=== PATIENT | female | born 1955 | race Caucasian/White ===

== ENCOUNTER → 2018-02-01 09:54 | Outpatient (CLI) | payer OTHER, SELFPAY ==
[2018-02-01 10:27] LABS: Hemoglobin A1C% w Est Avg Glu 6.9 % (4.0-6.0)
== END ==
PROVIDERS: Family Provider Family Medicine; PCP Family Medicine; Visit Provider Family Medicine
DX: E11.9 Type 2 diabetes mellitus without complications (principal)
CPT/HCPCS: 36415; 83036

== ENCOUNTER → 2018-07-16 15:38 | Outpatient (CLI) | payer OTHER, SELFPAY ==
[2018-07-16 16:28] LABS: Hemoglobin A1C% w Est Avg Glu 7.1 % (4.0-6.0)
[2018-07-16 16:34] LABS: HEMOLYSIS < 15 (0-50)
[2018-07-16 16:35] LABS: Alanine Aminotransferase 33 IU/L (9-52); Albumin 4.2 g/dL (3.5-5.0); Albumin Globulin Ratio 1.6 (1.0-2.8); Alkaline Phosphatase 77 U/L (38-126); Aspartate Aminotransferase 18 IU/L (14-36); BUN Creatinine Ratio 26.7 (6-22); Bilirubin Total 0.2 mg/dL (0.2-1.3); Blood Urea Nitrogen 16 mg/dL (7-17); Calcium 9.5 mg/dL (8.4-10.2); Carbon Dioxide 26 mmol/L (22-32); Chloride 101 mmol/L (98-107); Cholesterol 148 mg/dL (140-199); Estimated Glomerular Filt Rate > 60.0 mL/min (>60); Globulin 2.6 g/dL (1.7-4.1); Glucose 128 mg/dL (80-110); HDL Cholesterol 54 mg/dL (40-60); LDL Cholesterol Calculated 71 mg/dL (<100); Sodium 140 mmol/L (137-145); Total Protein 6.8 g/dL (6.3-8.2); Triglycerides 113 mg/dL (35-150)
[2018-07-16 16:55] LABS: Potassium 4.5 mmol/L (3.4-5.1)
== END ==
PROVIDERS: Family Provider Family Medicine; PCP Family Medicine; Visit Provider Family Medicine
DX: E11.9 Type 2 diabetes mellitus without complications (principal); I10 Essential (primary) hypertension
CPT/HCPCS: 36415; 80053; 80061; 83036

== ENCOUNTER → 2018-11-01 09:43 | Outpatient (CLI) | payer OTHER, SELFPAY ==
[2018-11-01 11:05] LABS: Hemoglobin A1C% w Est Avg Glu 6.7 % (4.0-6.0)
== END ==
PROVIDERS: Family Provider Family Medicine; PCP Family Medicine; Visit Provider Family Medicine
DX: E11.9 Type 2 diabetes mellitus without complications (principal)
CPT/HCPCS: 36415; 83036

== ENCOUNTER → 2018-11-13 09:16 | Outpatient (CLI) | payer OTHER, SELFPAY ==
--- NOTE | 2018-11-13 09:18 | DI.MG.S_ITS ---
BILATERAL DIGITAL SCREENING MAMMOGRAM 3D/2D WITH CAD: 11/13/2018 CLINICAL: Routine screening. Family history of breast cancer. Comparison is made to exams dated: 09/05/2016 mammogram, 06/15/2015 mammogram, and 05/19/2014 mammogram - [facility]. There are scattered fibroglandular elements in both breasts. Current study was also evaluated with a Computer Aided Detection (CAD) system. No significant masses, calcifications, or other findings are seen in either breast. There has been no significant interval change. IMPRESSION: NEGATIVE There is no mammographic evidence of malignancy. A 1 year screening mammogram is recommended. This exam was interpreted at Station ID: [id number]. NOTE: For mammograms, a report in lay terms will be sent to the patient. Approximately 15% of breast malignancies will not be visualized mammographically. In the management of a palpable breast mass, a negative mammogram must not discourage biopsy of a clinically suspicious lesion. Electronically Signed By: Eduardo fletcher/rah:11/15/2018 11:13:44 copy to: Lucero Cash letter sent: Normal Exam ACR BI-RADS Category 1: Negative 3341F
== END ==
PROVIDERS: PCP Family Medicine; Visit Provider Family Medicine
DX: Z12.31 Encounter for screening mammogram for malignant neoplasm of breast (principal); Z80.3 Family history of malignant neoplasm of breast
CPT/HCPCS: 77063; 77067

== ENCOUNTER → 2019-02-08 09:29 | Outpatient (CLI) | payer OTHER, SELFPAY ==
[2019-02-08 11:32] LABS: BUN Creatinine Ratio 28.3 (6-22); Blood Urea Nitrogen 17 mg/dL (7-17); Calcium 10.1 mg/dL (8.4-10.2); Carbon Dioxide 31 mmol/L (22-32); Chloride 100 mmol/L (98-107); Estimated Glomerular Filt Rate > 60.0 mL/min (>60); Glucose 109 mg/dL (80-110); HEMOLYSIS < 15 (0-50); Potassium 4.3 mmol/L (3.4-5.1); Sodium 139 mmol/L (137-145)
[2019-02-08 11:33] LABS: Hemoglobin A1C% w Est Avg Glu 6.9 % (4.0-6.0)
== END ==
PROVIDERS: PCP Family Medicine; Visit Provider Family Medicine
DX: E11.9 Type 2 diabetes mellitus without complications (principal); I10 Essential (primary) hypertension
CPT/HCPCS: 36415; 80048; 83036

== ENCOUNTER → 2019-02-09 11:34 | Outpatient (CLI) | payer OTHER, SELFPAY ==
[2019-02-09 15:41] LABS: Creatinine Urine Random 50.2 mg/dL
[2019-02-09 15:47] LABS: Microalbumi Creatinin Ratio Ur 11.9 ug/mg CR (<30); Microalbumin Urine Random < 0.6 mg/dL (0-1.6)
== END ==
PROVIDERS: PCP Family Medicine; Visit Provider Family Medicine
DX: E11.9 Type 2 diabetes mellitus without complications (principal)
CPT/HCPCS: 82043; 82570

== ENCOUNTER → 2019-08-08 08:28 | Outpatient (CLI) | payer OTHER, SELFPAY ==
[2019-08-08 09:05] LABS: BUN Creatinine Ratio 33.3 (6-22); Blood Urea Nitrogen 20 mg/dL (7-17); Carbon Dioxide 29 mmol/L (22-32); Chloride 102 mmol/L (98-107); Estimated Glomerular Filt Rate > 60.0 mL/min (>60); Glucose 207 mg/dL (80-110); HEMOLYSIS < 15 (0-50); Potassium 4.5 mmol/L (3.4-5.1); Sodium 140 mmol/L (137-145)
[2019-08-08 09:07] LABS: Hemoglobin A1C% w Est Avg Glu 7.4 % (4.0-6.0)
== END ==
PROVIDERS: PCP Family Medicine; Visit Provider Family Medicine
DX: E11.9 Type 2 diabetes mellitus without complications (principal)
CPT/HCPCS: 36415; 80048; 83036

== ENCOUNTER 2019-09-08 13:32 | Outpatient (CLI) | payer OTHER, BC, SELFPAY | END 2019-09-13 09:35 | disposition home or self-care (01) | PROVIDERS: PCP Family Medicine; Visit Provider Family Medicine | DX: R20.2 Paresthesia of skin (principal) | CPT/HCPCS: 95886; 95910 ==

== ENCOUNTER → 2019-12-19 10:44 | Outpatient (CLI) | payer OTHER, BC, SELFPAY ==
[2019-12-19 11:41] LABS: Hemoglobin A1C% w Est Avg Glu 7.5 % (4.0-6.0)
[2019-12-19 11:43] LABS: Alanine Aminotransferase 22 IU/L (<35); Albumin 4.5 g/dL (3.5-5.0); Albumin Globulin Ratio 1.3 (1.0-2.8); Alkaline Phosphatase 93 U/L (38-126); Aspartate Aminotransferase 27 IU/L (14-36); BUN Creatinine Ratio 23.6 (6-22); Bilirubin Total 0.5 mg/dL (0.2-1.3); Blood Urea Nitrogen 13 mg/dL (7-17); Carbon Dioxide 29 mmol/L (22-32); Chloride 103 mmol/L (98-107); Cholesterol 167 mg/dL (140-199); Estimated Glomerular Filt Rate > 60.0 mL/min (>60); Globulin 3.4 g/dL (1.7-4.1); Glucose 84 mg/dL (80-110); HDL Cholesterol 44 mg/dL (40-60); HEMOLYSIS < 15 (0-50); LDL Cholesterol Calculated 84 mg/dL (<100); Potassium 4.7 mmol/L (3.4-5.1); Sodium 140 mmol/L (137-145); Total Protein 7.9 g/dL (6.3-8.2); Triglycerides 195 mg/dL (35-150)
== END ==
PROVIDERS: PCP Family Medicine; Referring Provider Family Medicine; Visit Provider Family Medicine
DX: E11.9 Type 2 diabetes mellitus without complications (principal); I10 Essential (primary) hypertension; E66.01 Morbid (severe) obesity due to excess calories; Z68.35 Body mass index [BMI] 35.0-35.9, adult
CPT/HCPCS: 36415; 80053; 80061; 83036

== ENCOUNTER → 2020-03-17 09:07 | Outpatient (CLI) | payer OTHER, BC, SELFPAY ==
[2020-03-17 11:19] LABS: BUN Creatinine Ratio 28.6 (6-22); Blood Urea Nitrogen 18 mg/dL (7-17); Calcium 9.7 mg/dL (8.4-10.2); Carbon Dioxide 26 mmol/L (22-32); Chloride 103 mmol/L (98-107); Estimated Glomerular Filt Rate > 60.0 mL/min (>60); Glucose 164 mg/dL (80-110); HEMOLYSIS < 15 (0-50); Potassium 4.7 mmol/L (3.4-5.1); Sodium 137 mmol/L (137-145)
== END ==
PROVIDERS: PCP Family Medicine; Referring Provider Family Medicine; Visit Provider Family Medicine
DX: E11.9 Type 2 diabetes mellitus without complications (principal); I10 Essential (primary) hypertension
CPT/HCPCS: 36415; 80048; 83036

== ENCOUNTER → 2020-06-18 13:03 | Outpatient (CLI) | payer OTHER, BC, SELFPAY ==
[2020-06-18 14:28] LABS: Hemoglobin A1C% w Est Avg Glu 7.5 % (4.0-6.0)
[2020-06-18 15:32] LABS: BUN Creatinine Ratio 22.4 (6-22); Blood Urea Nitrogen 13 mg/dL (7-17); Calcium 9.5 mg/dL (8.4-10.2); Carbon Dioxide 27 mmol/L (22-32); Chloride 102 mmol/L (98-107); Estimated Glomerular Filt Rate > 60.0 mL/min (>60); Glucose 168 mg/dL (80-110); HEMOLYSIS < 15 (0-50); Potassium 4.4 mmol/L (3.4-5.1); Sodium 137 mmol/L (137-145)
== END ==
PROVIDERS: PCP Family Medicine; Referring Provider Family Medicine; Visit Provider Family Medicine
DX: E11.9 Type 2 diabetes mellitus without complications (principal); E66.9 Obesity, unspecified; I10 Essential (primary) hypertension
CPT/HCPCS: 36415; 80048; 83036

== ENCOUNTER → 2020-10-29 16:05 | Outpatient (CLI) | payer OTHER, BC, SELFPAY ==
[2020-10-29 17:38] LABS: Hemoglobin A1C% w Est Avg Glu 7.5 % (4.0-6.0)
[2020-10-29 18:17] LABS: Alanine Aminotransferase 28 IU/L (<35); Albumin 4.4 g/dL (3.5-5.0); Albumin Globulin Ratio 1.5 (1.0-2.8); Alkaline Phosphatase 90 U/L (38-126); Aspartate Aminotransferase 25 IU/L (14-36); BUN Creatinine Ratio 18.2 (6-22); Bilirubin Total 0.2 mg/dL (0.2-1.3); Blood Urea Nitrogen 12 mg/dL (7-17); Calcium 9.8 mg/dL (8.4-10.2); Carbon Dioxide 30 mmol/L (22-32); Chloride 101 mmol/L (98-107); Cholesterol 183 mg/dL (140-199); Estimated Glomerular Filt Rate > 60.0 mL/min (>60); Globulin 2.9 g/dL (1.7-4.1); Glucose 106 mg/dL (80-110); HDL Cholesterol 60 mg/dL (40-60); HEMOLYSIS < 15 (0-50); LDL Cholesterol Calculated 91 mg/dL (<100); Potassium 4.1 mmol/L (3.4-5.1); Sodium 138 mmol/L (137-145); Total Protein 7.3 g/dL (6.3-8.2); Triglycerides 159 mg/dL (35-150)
[2020-10-29 18:18] LABS: Creatinine Urine Random 72.1 mg/dL
[2020-10-29 18:29] LABS: Microalbumin Urine Random < 0.6 mg/dL (0-1.6)
== END ==
PROVIDERS: PCP Family Medicine; Referring Provider Family Medicine; Visit Provider Family Medicine
DX: E11.9 Type 2 diabetes mellitus without complications (principal); E66.9 Obesity, unspecified; E78.5 Hyperlipidemia, unspecified; I10 Essential (primary) hypertension
CPT/HCPCS: 36415; 80053; 80061; 82043; 82570; 83036

== ENCOUNTER → 2020-12-17 15:29 | Outpatient (CLI) | payer OTHER, BC, SELFPAY ==
[2020-12-17 15:58] LABS: Hemoglobin A1C% w Est Avg Glu 7.7 % (4.0-6.0)
[2020-12-17 17:55] LABS: BUN Creatinine Ratio 24.1 (6-22); Blood Urea Nitrogen 14 mg/dL (7-17); Calcium 9.6 mg/dL (8.4-10.2); Carbon Dioxide 28 mmol/L (22-32); Chloride 101 mmol/L (98-107); Estimated Glomerular Filt Rate > 60.0 mL/min (>60); Glucose 181 mg/dL (80-110); HEMOLYSIS < 15 (0-50); Potassium 3.9 mmol/L (3.4-5.1); Sodium 136 mmol/L (137-145)
== END ==
PROVIDERS: PCP Family Medicine; Referring Provider Family Medicine; Visit Provider Family Medicine
DX: E11.9 Type 2 diabetes mellitus without complications (principal); I10 Essential (primary) hypertension
CPT/HCPCS: 36415; 80048; 83036

== ENCOUNTER → 2021-05-10 16:30 | Outpatient (CLI) | payer OTHER, BC, SELFPAY ==
[2021-05-10 19:19] LABS: Hemoglobin A1C% w Est Avg Glu 7.2 % (4.0-6.0)
[2021-05-10 19:25] LABS: BUN Creatinine Ratio 20.6 (6-22); Blood Urea Nitrogen 13 mg/dL (7-17); Calcium 9.7 mg/dL (8.4-10.2); Carbon Dioxide 31 mmol/L (22-32); Chloride 102 mmol/L (98-107); Estimated Glomerular Filt Rate > 60.0 mL/min (>60); Glucose 117 mg/dL (80-110); HEMOLYSIS < 15 (0-50); Potassium 4.1 mmol/L (3.4-5.1); Sodium 140 mmol/L (137-145)
== END ==
PROVIDERS: PCP Family Medicine; Referring Provider Family Medicine; Visit Provider Family Medicine
DX: E11.9 Type 2 diabetes mellitus without complications (principal); E66.9 Obesity, unspecified
CPT/HCPCS: 36415; 80048; 83036

== ENCOUNTER → 2021-09-03 16:18 | Outpatient (CLI) | payer OTHER, BC, SELFPAY ==
[2021-09-03 17:50] LABS: BUN Creatinine Ratio 27.3 (6-22); Blood Urea Nitrogen 18 mg/dL (7-17); Calcium 9.7 mg/dL (8.4-10.2); Carbon Dioxide 30 mmol/L (22-32); Chloride 101 mmol/L (98-107); Estimated Glomerular Filt Rate > 60.0 mL/min (>60); Glucose 149 mg/dL (80-110); HEMOLYSIS < 15 (0-50); Potassium 4.1 mmol/L (3.4-5.1); Sodium 137 mmol/L (137-145)
[2021-09-03 17:53] LABS: Hemoglobin A1C% w Est Avg Glu 7.1 % (4.0-6.0)
== END ==
PROVIDERS: PCP Family Medicine; Referring Provider Family Medicine; Visit Provider Family Medicine
DX: E11.9 Type 2 diabetes mellitus without complications (principal); E78.5 Hyperlipidemia, unspecified; I10 Essential (primary) hypertension
CPT/HCPCS: 36415; 80048; 83036

== ENCOUNTER → 2021-12-06 15:35 | Outpatient (CLI) | payer OTHER, BC, SELFPAY ==
[2021-12-06 16:29] LABS: Hemoglobin A1C% w Est Avg Glu 7.1 % (4.0-6.0)
[2021-12-06 17:11] LABS: Alanine Aminotransferase 21 IU/L (<35); Albumin 4.3 g/dL (3.5-5.0); Albumin Globulin Ratio 1.5 (1.0-2.8); Alkaline Phosphatase 64 U/L (38-126); Aspartate Aminotransferase 23 IU/L (14-36); BUN Creatinine Ratio 23.4 (6-22); Bilirubin Total 0.2 mg/dL (0.2-1.3); Blood Urea Nitrogen 15 mg/dL (7-17); Calcium 9.1 mg/dL (8.4-10.2); Carbon Dioxide 28 mmol/L (22-32); Chloride 101 mmol/L (98-107); Estimated Glomerular Filt Rate > 60 mL/min (>60); Globulin 2.9 g/dL (1.7-4.1); Glucose 174 mg/dL (80-110); HEMOLYSIS < 15 (0-50); Potassium 3.7 mmol/L (3.4-5.1); Sodium 138 mmol/L (137-145); Total Protein 7.2 g/dL (6.3-8.2)
== END ==
PROVIDERS: Referring Provider Family Medicine; Visit Provider Family Medicine
DX: E11.9 Type 2 diabetes mellitus without complications (principal); E66.9 Obesity, unspecified; E78.5 Hyperlipidemia, unspecified; I10 Essential (primary) hypertension
CPT/HCPCS: 36415; 80053; 83036

== ENCOUNTER → 2022-03-25 13:15 | Outpatient (CLI) | payer OTHER, BC, SELFPAY ==
[2022-03-25 13:50] LABS: Hemoglobin A1C% w Est Avg Glu 6.9 % (4.0-6.0)
[2022-03-25 14:40] LABS: Cholesterol 185 mg/dL (140-199); HDL Cholesterol 59 mg/dL (40-60); LDL Cholesterol Calculated 102 mg/dL (<100); Triglycerides 118 mg/dL (35-150)
[2022-03-25 14:53] LABS: Creatinine Urine Random 83.9 mg/dL
[2022-03-25 15:00] LABS: Microalbumin Urine Random < 0.6 mg/dL (0-1.6)
== END ==
PROVIDERS: PCP Pediatrics; Referring Provider Family Medicine; Visit Provider Family Medicine
DX: E11.9 Type 2 diabetes mellitus without complications (principal); I10 Essential (primary) hypertension
CPT/HCPCS: 36415; 80061; 82043; 82570; 83036

== ENCOUNTER → 2022-06-07 09:59 | Outpatient (CLI) | payer OTHER, BC, SELFPAY ==
[2022-06-07 11:36] LABS: Hemoglobin A1C% w Est Avg Glu 6.5 % (4.0-6.0)
== END ==
PROVIDERS: PCP Pediatrics; Referring Provider Pediatrics; Visit Provider Pediatrics
DX: E11.9 Type 2 diabetes mellitus without complications (principal); E66.9 Obesity, unspecified; E78.1 Pure hyperglyceridemia; I10 Essential (primary) hypertension
CPT/HCPCS: 36415; 83036

== ENCOUNTER → 2022-06-18 14:42 | Outpatient (CLI) | payer OTHER, BC, SELFPAY ==
[2022-06-18 15:27] LABS: Influenza A - CEPHEID Flu A NEGATIVE (NEGATIVE); Influenza B - CEPHEID Flu B NEGATIVE (NEGATIVE); Respiratory Syncytial Virus Negative (Negative)
[2022-06-18 15:31] LABS: COVID-19 CEPHEID 4-PLEX PCR Negative (Negative)
== END ==
PROVIDERS: Visit Provider Student in an Organized Health Care Education/Training Program
DX: R50.9 Fever, unspecified (principal)
CPT/HCPCS: 0241U

== ENCOUNTER → 2022-06-19 12:06 | Outpatient (CLI) | payer OTHER, BC, SELFPAY ==
--- NOTE | 2022-06-19 12:08 | DI.RAD.S_ITS ---
PROCEDURE: XR CHEST 2V INDICATIONS: cough greater than 3 weeks, fevers TECHNIQUE: 2 views of the chest were acquired. COMPARISON: None. FINDINGS: Surgical changes and devices: None. Lungs and pleura: Lungs are clear. No pleural effusions or pneumothorax. Mediastinum: Mediastinal contours are normal. Heart size is normal. Bones and chest wall: No suspicious bony abnormalities. Soft tissues appear unremarkable. IMPRESSION: No acute cardiopulmonary abnormality. Dictated by: Joon Howell M.D. on 06/19/2022 at 11:37 Approved by: Joon Howell M.D. on 06/19/2022 at 11:38
== END ==
PROVIDERS: PCP Family Medicine; Referring Provider Student in an Organized Health Care Education/Training Program; Visit Provider Student in an Organized Health Care Education/Training Program
DX: R05.8 Other specified cough (principal); R50.9 Fever, unspecified
CPT/HCPCS: 71046

== ENCOUNTER → 2022-06-21 10:10 | Outpatient (CLI) | payer OTHER, BC, SELFPAY ==
[2022-06-21 10:38] LABS: Add Manual Diff / Slide Review NO; Basophils Absolute Auto 100 /uL (0-100); Eosinophils Absolute Auto 200 /uL (0-450); Hematocrit 36.3 % (36-46); Hemoglobin 12.1 g/dL (12.0-16.0); Lymphocytes Absolute Auto 2000 /uL (1100-4500); Lymphocytes Percent Auto 27.5 % (25-40); Mean Corpuscular HGB Conc 33.3 % (30-36); Mean Corpuscular Hemoglobin 28.1 PG (26-34); Mean Corpuscular Volume 84.4 fL (80-100); Monocytes Absolute Auto 500 /uL (0-900); Monocytes Percent Auto 7.4 % (3-14); Neutrophils Absolute Auto 4400 /uL (1500-7000); Neutrophils Percent Auto 61.1 % (50-75); Platelet Count 360 X10^3/uL (150-400); Red Cell Distribution Width 14.5 % (11.6-14.8); White Blood Cell Count 7.2 X10^3/uL (4.5-11.0)
[2022-06-21 10:47] LABS: Alanine Aminotransferase 18 IU/L (<35); Albumin Globulin Ratio 1.3 (1.0-2.8); Alkaline Phosphatase 77 U/L (38-126); Aspartate Aminotransferase 15 IU/L (14-36); BUN Creatinine Ratio 21.7 (6-22); Bilirubin Total 0.4 mg/dL (0.2-1.3); Blood Urea Nitrogen 15 mg/dL (7-17); Calcium 9.3 mg/dL (8.4-10.2); Carbon Dioxide 30 mmol/L (22-32); Chloride 98 mmol/L (98-107); Cholesterol 159 mg/dL (140-199); Estimated Glomerular Filt Rate > 60 mL/min (>60); Glucose 140 mg/dL (80-110); HDL Cholesterol 53 mg/dL (40-60); HEMOLYSIS < 15 (0-50); LDL Cholesterol Calculated 79 mg/dL (<100); Potassium 4.4 mmol/L (3.4-5.1); Sodium 136 mmol/L (137-145); Triglycerides 137 mg/dL (35-150)
[2022-06-21 11:07] LABS: Appearance Urine UA CLEAR; Bilirubin Urine UA NEGATIVE (NEGATIVE); Color Urine UA YELLOW; Glucose Urine UA NEGATIVE (Negative); Ketones Urine UA NEGATIVE (NEGATIVE); Leukocyte Esterase Urine UA TRACE (NEGATIVE); Nitrite Urine UA NEGATIVE (Negative); Occult Blood Urine UA NEGATIVE (Negative); Protein Urine UA NEGATIVE (Negative); Urobilinogen Urine UA 0.2 E.U./dL (0.2)
[2022-06-21 11:17] LABS: Amorphous Sediment Urine 1+; Bacteria Urine Occasional (0-1); Culture Indicated Urine Specimen Cultured; RBC Urine None Seen (0-5/HPF); Squamous Epithelial Cell Urine 1-5 /HPF (0-5/HPF); WBC Urine 0-1/HPF (0-5/HPF)
== END ==
PROVIDERS: PCP Family Medicine; Referring Provider Pediatrics; Visit Provider Pediatrics
DX: E11.9 Type 2 diabetes mellitus without complications (principal); E66.9 Obesity, unspecified; E78.1 Pure hyperglyceridemia; I10 Essential (primary) hypertension; R30.0 Dysuria
CPT/HCPCS: 36415; 80053; 80061; 81001; 85025; 87086

== ENCOUNTER → 2022-12-11 08:07 | Outpatient (CLI) | payer OTHER, BC, SELFPAY ==
[2022-12-11 10:07] LABS: Alanine Aminotransferase 21 IU/L (<35); Albumin 3.9 g/dL (3.5-5.0); Albumin Globulin Ratio 1.6 (1.0-2.8); Alkaline Phosphatase 71 U/L (38-126); Aspartate Aminotransferase 18 IU/L (14-36); BUN Creatinine Ratio 28.4 (6-22); Bilirubin Total 0.3 mg/dL (0.2-1.3); Blood Urea Nitrogen 19 mg/dL (7-17); Calcium 9.2 mg/dL (8.4-10.2); Carbon Dioxide 29 mmol/L (22-32); Chloride 99 mmol/L (98-107); Estimated Glomerular Filt Rate > 60 mL/min (>60); Globulin 2.5 g/dL (1.7-4.1); Glucose 125 mg/dL (80-110); HEMOLYSIS < 15 (0-50); Potassium 4.4 mmol/L (3.4-5.1); Sodium 135 mmol/L (137-145); Total Protein 6.4 g/dL (6.3-8.2)
[2022-12-11 10:38] LABS: Microalbumin Urine Random < 0.6 mg/dL (0-1.6)
[2022-12-12 09:34] LABS: x Labcorp Estim. Avg Glu (eAG) 154 mg/dL (.)
== END ==
PROVIDERS: PCP Family Medicine; Referring Provider Family Medicine; Visit Provider Family Medicine
DX: E11.9 Type 2 diabetes mellitus without complications (principal); I10 Essential (primary) hypertension; Z13.9 Encounter for screening, unspecified
CPT/HCPCS: 36415; 80053; 82043; 82570; 83036

== ENCOUNTER → 2023-02-27 11:25 | Outpatient (CLI) | payer OTHER, BC, SELFPAY ==
[2023-03-02 07:54] LABS: Fecal Immunochemical Test Negative (Negative)
== END ==
PROVIDERS: PCP Family Medicine; Referring Provider Family Medicine; Visit Provider Family Medicine
DX: Z12.11 Encounter for screening for malignant neoplasm of colon (principal)
CPT/HCPCS: 82274

== ENCOUNTER → 2023-03-04 13:00 | Outpatient (CLI) | payer OTHER, BC, SELFPAY ==
--- NOTE | 2023-03-04 13:01 | DI.MG.S_ITS ---
BILATERAL DIGITAL SCREENING MAMMOGRAM 3D/2D WITH CAD: 03/04/2023 CLINICAL: Routine screening. Family history of breast cancer. Comparison is made to exams dated: 11/13/2018 mammogram, 06/15/2015 mammogram, and 09/05/2016 mammogram - [facility]. There are scattered areas of fibroglandular density in both breasts (category b / 25%-50% glandular tissue). Current study was also evaluated with a Computer Aided Detection (CAD) system. No significant masses, calcifications, or other findings are seen in either breast. There has been no significant interval change. IMPRESSION: NEGATIVE There is no mammographic evidence of malignancy. A 1 year screening mammogram is recommended. Based on the Tyrer Cuzick model (a risk assessment model) the patient's lifetime risk is 4.3% and her 10 year risk is 2.6%. According to the ACR, ACS, and NCCN guidelines, an annual breast MRI exam along with mammogram is recommended if the patient's lifetime risk is 20% or greater. This exam was interpreted at Station ID: [id number]. NOTE: For mammograms, a report in lay terms will be sent to the patient. Approximately 15% of breast malignancies will not be visualized mammographically. In the management of a palpable breast mass, a negative mammogram must not discourage biopsy of a clinically suspicious lesion. Electronically Signed By: Ksenia frias/rah:03/04/2023 16:07:17 letter sent: Normal Exam ACR BI-RADS Category 1: Negative [id number]
== END ==
PROVIDERS: PCP Family Medicine; Referring Provider Family Medicine; Visit Provider Family Medicine
DX: Z12.31 Encounter for screening mammogram for malignant neoplasm of breast (principal); Z80.3 Family history of malignant neoplasm of breast
CPT/HCPCS: 77063; 77067

== ENCOUNTER → 2023-03-10 09:01 | Outpatient (CLI) | payer OTHER, BC, SELFPAY ==
[2023-03-10 09:44] LABS: BUN Creatinine Ratio 30.5 (6-22); Blood Urea Nitrogen 18 mg/dL (7-17); Calcium 9.3 mg/dL (8.4-10.2); Carbon Dioxide 27 mmol/L (22-32); Chloride 102 mmol/L (98-107); Cholesterol 177 mg/dL (140-199); Estimated Glomerular Filt Rate > 60 mL/min (>60); Glucose 158 mg/dL (80-110); HDL Cholesterol 55 mg/dL (40-60); HEMOLYSIS < 15 (0-50); LDL Cholesterol Calculated 98 mg/dL (<100); Potassium 4.5 mmol/L (3.4-5.1); Sodium 135 mmol/L (137-145); Triglycerides 122 mg/dL (35-150)
[2023-03-12 07:43] LABS: Labcorp Hemoglobin (Hb) A1c 7.1 % (4.8-5.6)
== END ==
PROVIDERS: PCP Family Medicine; Referring Provider Family Medicine; Visit Provider Family Medicine
DX: E11.9 Type 2 diabetes mellitus without complications (principal); E78.1 Pure hyperglyceridemia; I10 Essential (primary) hypertension
CPT/HCPCS: 36415; 80048; 80061; 83036

== ENCOUNTER → 2023-06-16 15:33 | Outpatient (CLI) | payer OTHER, BC, SELFPAY ==
[2023-06-16 18:00] LABS: BUN Creatinine Ratio 25.4 (6-22); Blood Urea Nitrogen 18 mg/dL (7-17); Calcium 9.4 mg/dL (8.4-10.2); Carbon Dioxide 28 mmol/L (22-32); Chloride 99 mmol/L (98-107); Estimated Glomerular Filt Rate > 60 mL/min (>60); Glucose 164 mg/dL (80-110); HEMOLYSIS < 15 (0-50); Hemoglobin A1C% w Est Avg Glu 7.5 % (4.0-6.0); Sodium 137 mmol/L (137-145)
== END ==
PROVIDERS: PCP Family Medicine; Referring Provider Family Medicine; Visit Provider Family Medicine
DX: E11.9 Type 2 diabetes mellitus without complications (principal); I10 Essential (primary) hypertension; E66.9 Obesity, unspecified
CPT/HCPCS: 36415; 80048; 83036

== ENCOUNTER → 2023-10-25 13:44 | Outpatient (CLI) | payer OTHER, BC, SELFPAY ==
--- NOTE | 2023-10-25 13:46 | DI.MRI.S_ITS ---
PROCEDURE: MR ANKLE LT WO/W CON INDICATIONS: Pain in left ankle and joints of left foot TECHNIQUE: Noncontrast sagittal T1 spin echo and T2 fast spin echo with fat saturation, axial proton density fast spin echo and T2 fast spin echo with fat saturation, axial T1 spin echo with fat saturation, coronal T1 spin echo and T2 fast spin echo with fat saturation through the ankle/hindfoot. Post-contrast axial, coronal, and sagittal T1 spin echo with fat saturation through the ankle/hindfoot. COMPARISON: [facility], CR, XR ANKLE 3+ VIEWS LEFT, 10/08/2023, 9:19. FINDINGS: Image quality: Diagnostic Bones and Joints: Tibiotalar joint: No acute fracture. There is a focal area of edema in the medial malleolus. There are minimal degenerative changes. No significant effusion. Midfoot and hindfoot: Mild midfoot degenerative changes. Mild focal edema is seen in the proximal dorsal surface of the medial cuneiform . More focal degenerative changes also seen in the 2nd, 3rd, and 4th TMT is, with subchondral edema Talar dome: No osteochondral lesions. Medial Structures: Flexor tendons: PT, FDL, and FHL are intact. Mild tenosynovitis is seen at the plantar crossing. Deltoid ligaments: Visualized deep and superficial layers are intact. Spring complex: Intact. Sinus tarsi: Preserved fat signal. Lateral Structures: Ligaments: Signal abnormality of the anterior talofibular ligament. There is also mild edema surrounding the other lateral ligaments. Syndesmosis: Tibiofibular ligaments are intact. Syndesmosis is not pathologically widened Peroneus tendons: [id number] insertional tendinopathy of the brevis tendon. Anterior Structures: Extensor tendons: High-grade tear and proximal thickening of the anterior tibialis. Plantar and Posterior Structures: Achilles: Intact. Plantar fascia: Enthesopathy is present, without acute edema or enhancement Muscles: No suspicious intramuscular enhancement or atrophy or edema Nonspecific edema is seen in Kager's fat pad. Other soft tissues: Mild subcutaneous soft tissue swelling is nonspecific. No drainable fluid collection. IMPRESSION: High-grade tear with proximal thickening and tendinous retraction of the anterior tibialis. Mild focal edema at the medial malleolus, and dorsum of the medial cuneiform, possibly representing nondisplaced contusions. Scattered degenerative changes, particularly at the 2nd, 3rd, and 4th TMT is, with subchondral edema. Mild scattered midfoot and minimal tibiotalar degenerative changes. Possible sprain versus prior injury with remodeling of the lateral ligaments. Glld-th-wkgfzztt tendinopathy of the peroneus brevis insertion. There is nonspecific edema in Keger's fat pad and subcutaneous tissues Dictated by: Marques Lomeli M.D. on 10/26/2023 at 15:12 Approved by: Marques Lomeli M.D. on 10/26/2023 at 15:24
== END ==
PROVIDERS: PCP Family Medicine; Referring Provider Podiatrist; Visit Provider Podiatrist
DX: S96.812A Strain of other specified muscles and tendons at ankle and foot level, left foot, initial encounter (principal); M25.572 Pain in left ankle and joints of left foot; R60.0 Localized edema
CPT/HCPCS: 73723; A9579

== ENCOUNTER → 2023-10-30 09:56 | Outpatient (CLI) | payer OTHER, BC, SELFPAY ==
[2023-10-30 10:52] LABS: Cholesterol 180 mg/dL (140-199); HDL Cholesterol 55 mg/dL (40-60); LDL Cholesterol Calculated 102 mg/dL (<100); Triglycerides 115 mg/dL (35-150)
[2023-10-30 11:51] LABS: Microalbumi Creatinin Ratio Ur 4.2 ug/mg CR (<30); Microalbumin Urine Random 0.6 mg/dL (0-1.6)
== END ==
PROVIDERS: PCP Family Medicine; Referring Provider Family Medicine; Visit Provider Family Medicine
DX: I10 Essential (primary) hypertension (principal); E11.9 Type 2 diabetes mellitus without complications
CPT/HCPCS: 36415; 80061; 82043; 82570

== ENCOUNTER → 2023-11-07 10:02 | Outpatient (CLI) | payer OTHER, BC, SELFPAY ==
[2023-11-07 12:01] LABS: High Sensitivity CRP - Cardiac 5.7 mg/L (1.0-3.0)
[2023-11-07 12:04] LABS: Hemoglobin A1C% w Est Avg Glu 6.9 % (4.0-6.0)
== END ==
LOC: LAB 10:04
PROVIDERS: PCP Family Medicine; Referring Provider Family Medicine; Visit Provider Family Medicine
DX: E78.5 Hyperlipidemia, unspecified (principal); E11.9 Type 2 diabetes mellitus without complications
CPT/HCPCS: 36415; 83036; 86140

== ENCOUNTER → 2024-02-08 13:31 | Outpatient (CLI) | payer OTHER, BC, SELFPAY ==
[2024-02-08 15:13] LABS: Hemoglobin A1C% w Est Avg Glu 7.1 % (4.0-6.0)
== END ==
PROVIDERS: PCP Family Medicine; Referring Provider Family Medicine; Visit Provider Family Medicine
DX: E11.9 Type 2 diabetes mellitus without complications (principal)
CPT/HCPCS: 36415; 83036

== ENCOUNTER → 2024-08-18 12:43 | Outpatient (CLI) | payer OTHER, BC, SELFPAY ==
--- NOTE | 2024-08-18 12:44 | DI.MG.S_ITS ---
BILATERAL DIGITAL SCREENING MAMMOGRAM 3D/2D WITH CAD: 08/18/2024 CLINICAL: Routine screening. Family history of breast cancer. Comparison is made to exams dated: 03/04/2023 mammogram, 11/13/2018 mammogram, and 09/05/2016 mammogram - [facility]. The breasts are almost entirely fatty (category a/<25% glandular tissue). Current study was also evaluated with a Computer Aided Detection (CAD) system. No significant masses, calcifications, or other findings are seen in either breast. There has been no significant interval change. IMPRESSION: NEGATIVE There is no mammographic evidence of malignancy. A 1 year screening mammogram is recommended. Based on the Tyrer Cuzick model (a risk assessment model) the patient's lifetime risk is 2.7% and her 10 year risk is 1.7%. According to the ACR, ACS, and NCCN guidelines, an annual breast MRI exam along with mammogram is recommended if the patient's lifetime risk is 20% or greater. This exam was interpreted at Station ID: [id number]. NOTE: For mammograms, a report in lay terms will be sent to the patient. Approximately 15% of breast malignancies will not be visualized mammographically. In the management of a palpable breast mass, a negative mammogram must not discourage biopsy of a clinically suspicious lesion. Electronically Signed By: Raul simmons/rah:08/18/2024 16:22:17 letter sent: Normal Exam ACR BI-RADS Category 1: Negative
== END ==
PROVIDERS: PCP Family Medicine; Referring Provider Family Medicine; Visit Provider Family Medicine
DX: Z12.31 Encounter for screening mammogram for malignant neoplasm of breast (principal); Z80.3 Family history of malignant neoplasm of breast; R92.313 Mammographic fatty tissue density, bilateral breasts
CPT/HCPCS: 77063; 77067

== ENCOUNTER → 2024-09-03 12:06 | Outpatient (CLI) | payer OTHER, BC, SELFPAY | PROVIDERS: PCP Family Medicine; Referring Provider Family Medicine; Visit Provider Family Medicine | DX: Z12.11 Encounter for screening for malignant neoplasm of colon (principal) | CPT/HCPCS: 82274 ==

== ENCOUNTER → 2024-09-10 09:19 | Outpatient (CLI) | payer OTHER, BC, SELFPAY ==
[2024-09-10 09:58] LABS: Hematocrit 35.5 % (36-46); Hemoglobin 11.5 g/dL (12.0-16.0); Mean Corpuscular HGB Conc 32.5 % (30-36); Mean Corpuscular Hemoglobin 28.1 PG (26-34); Mean Corpuscular Volume 86.6 fL (80-100); Platelet Count 302 X10^3/uL (150-400); Red Cell Distribution Width 14.4 % (11.6-14.8); White Blood Cell Count 5.8 X10^3/uL (4.5-11.0)
[2024-09-10 10:37] LABS: Alanine Aminotransferase 29 IU/L (<35); Albumin 4.1 g/dL (3.5-5.0); Albumin Globulin Ratio 1.7 (1.0-2.8); Alkaline Phosphatase 78 U/L (38-126); Aspartate Aminotransferase 28 IU/L (14-36); BUN Creatinine Ratio 25.8 (6-22); Bilirubin Total 0.4 mg/dL (0.2-1.3); Blood Urea Nitrogen 17 mg/dL (7-17); Calcium 9.5 mg/dL (8.4-10.2); Carbon Dioxide 29 mmol/L (22-32); Chloride 103 mmol/L (98-107); Cholesterol 166 mg/dL (140-199); Estimated Glomerular Filt Rate > 60 mL/min (>60); Globulin 2.4 g/dL (1.7-4.1); Glucose 171 mg/dL (80-110); HDL Cholesterol 58 mg/dL (40-60); HEMOLYSIS < 15 (0-50); LDL Cholesterol Calculated 90 mg/dL (<100); Potassium 4.5 mmol/L (3.4-5.1); Sodium 138 mmol/L (137-145); Total Protein 6.5 g/dL (6.3-8.2); Triglycerides 92 mg/dL (35-150)
[2024-09-10 10:40] LABS: Hemoglobin A1C% w Est Avg Glu 7.1 % (4.0-6.0)
[2024-09-10 11:06] LABS: TSH w/ Reflex to FT4 1.63 uIU/mL (0.47-4.68)
[2024-09-11 08:10] LABS: CRP, High Sensitivity 7.49 mg/L (0.00-3.00)
== END ==
PROVIDERS: PCP Family Medicine; Referring Provider Family Medicine; Visit Provider Family Medicine
DX: E11.9 Type 2 diabetes mellitus without complications (principal); I10 Essential (primary) hypertension; E78.5 Hyperlipidemia, unspecified; G47.00 Insomnia, unspecified
CPT/HCPCS: 36415; 80053; 80061; 83036; 84443; 85027; 86140

== ENCOUNTER → 2025-03-06 08:37 | Outpatient (CLI) | payer OTHER, BC, SELFPAY ==
[2025-03-06 09:29] LABS: Hematocrit 36.8 % (36-46); Hemoglobin 12.0 g/dL (12.0-16.0); Mean Corpuscular HGB Conc 32.5 % (30-36); Mean Corpuscular Hemoglobin 28.0 PG (26-34); Mean Corpuscular Volume 86.0 fL (80-100); Platelet Count 291 X10^3/uL (150-400)
[2025-03-06 09:40] LABS: Hemoglobin A1C% w Est Avg Glu 7.3 % (4.0-6.0)
[2025-03-06 09:46] LABS: HEMOLYSIS < 15 (0-50); Iron 75 ug/dL (37-170)
[2025-03-06 10:00] LABS: Percent Iron Saturation 20 % (15-50); Total Iron Binding Capacity 376 ug/dL (265-497); Transferrin 315 mg/dL (206-381)
[2025-03-06 10:25] LABS: Ferritin 20 ng/mL (11-264)
== END ==
PROVIDERS: PCP Family Medicine; Referring Provider Family Medicine; Visit Provider Family Medicine
DX: D64.9 Anemia, unspecified (principal); E11.9 Type 2 diabetes mellitus without complications; I10 Essential (primary) hypertension; E66.9 Obesity, unspecified
CPT/HCPCS: 36415; 82728; 83036; 83540; 83550; 85027